=== PATIENT | male | born 1985 | race Caucasian/White ===

== ENCOUNTER 2017-05-02 01:55 | Inpatient (IN) | payer OTHER ==
[~2017-05-02] VITALS: Ht 175.3 cm; Wt 68.0 kg
[~2017-05-02 01:55] MED LIST: LANTUS SOL100 UNIT/1 SQ; NOVOLOG100 UNIT/1 SQ
[2017-05-08] MEDS ORDERED: HumaLOG 100 UNIT/1 M SUBCUTANEO ×3 (13:52)
[2017-05-08] MEDS ORDERED: Lantus 1000 UNITS/10 SUBCUTANEO (13:52)
== END 2017-05-08 17:54 | disposition home or self-care (01) | DRG 638 ==
LOC: ER 01:55 → ICU-2 10:38 → ICU 10:38 → MEDJ 05-07 17:01
PROC: 4A033R1 Measurement of Arterial Saturation, Peripheral, Percutaneous Approach (ICD-10-PCS; principal; 2017-05-02)
DX: E10.10 Type 1 diabetes mellitus with ketoacidosis without coma (principal); N17.8 Other acute kidney failure; N39.0 Urinary tract infection, site not specified; E87.1 Hypo-osmolality and hyponatremia; Z79.4 Long term (current) use of insulin; E86.0 Dehydration; K29.00 Acute gastritis without bleeding; D64.89 Other specified anemias; E10.43 Type 1 diabetes mellitus with diabetic autonomic (poly)neuropathy; K31.84 Gastroparesis